=== PATIENT | female | born 1970 | race Hispanic/Latino ===

== ENCOUNTER 2019-11-20 18:45 | Emergency (ER) | payer MEDICAID, SELFPAY ==
[2019-11-20] VITALS (15 sets, daily range): BP systolic 102–163; BP diastolic 67–93; PULSE 59–78; RESP 14–99; TEMP 36.8; O2SAT 96–100
--- NOTE | 2019-11-20 18:54 | DI.RAD.S_ITS ---
PROCEDURE: XR WRIST LT MIN 3V INDICATIONS: fall with injury TECHNIQUE: 3 views of the wrist were acquired. COMPARISON: None. FINDINGS: Bones: Acute comminuted and impacted distal radial fracture is seen with fracture line extending to radiocarpal joint space and dorsally displaced fracture fragments. Slightly displaced ulnar styloid fracture is also seen. No other fracture or dislocation. No suspicious bony lesions. Scaphoid view: Scaphoid is intact. Soft tissues: No suspicious soft tissue calcifications. IMPRESSION: Acute impacted, comminuted and displaced distal radial fracture as above. Slightly displaced ulnar styloid fracture. Dictated by: Alan Yoo M.D. on 11/20/2019 at 19:56 Approved by: Alan Yoo M.D. on 11/20/2019 at 19:56
--- NOTE | 2019-11-20 18:54 | DI.RAD.S_ITS ---
PROCEDURE: XR ELBOW LT MIN 3V INDICATIONS: fall with elbow pain TECHNIQUE: 3 views of the elbow were acquired. COMPARISON: None. FINDINGS: Bones: No fractures or dislocations. No suspicious bony lesions. Soft tissues: No elbow joint effusion. No suspicious soft tissue calcifications. IMPRESSION: No acute elbow fracture or dislocation. No joint effusion. Dictated by: Alan Yoo M.D. on 11/20/2019 at 19:55 Approved by: Alan Yoo M.D. on 11/20/2019 at 19:56
--- NOTE | 2019-11-20 19:08 | ED_ITS ---
HPI - Extremity Injury (Upper) General Chief Complaint: Extremity Injury, Upper Stated Complaint: LEFT ARM INJURY Time Seen by Provider: 11/20/19 18:54 Source: patient Mode of arrival: Ambulatory Limitations: no limitations History of Present Illness HPI narrative: 49F nonsmoker without significant medical history presents with her the chief complaint of severe injury to her left wrist after a ground level fall a few hours ago. She landed on an outstretched left arm and has pain in her wrist and elbow. She denies any head, neck, or back pain. She denies numbness, weakness, or tingling. She is otherwise well and free of complaint. She was seen by her doctor on [facility] and placed in a splint and sent here for definitive care. MD complaint: injury to: left, arm, elbow and wrist Onset (ago): hour(s) Other injuries: none Handedness: right Place: home Severity: moderate Relieving factors: immobilization Exacerbating factors: movement of extremity Context: fall and direct blow Associated symptoms: denies other symptoms Related Data Allergies Allergy/AdvReac Type Severity Reaction Status Date / Time No Known Allergies Allergy Uncoded 11/20/19 18:53 Review of Systems Constitutional Constitutional: Denies chills, Denies fatigue, Denies fever(s), Denies frequent falls, Denies lethargy and Denies weakness Eyes Eyes: Denies change in vision, Denies eye discharge, Denies irritation and Denies loss of vision ENT Ears, Nose, Mouth, and Throat: Denies change in voice, Denies dizziness, Denies neck pain, Denies sore throat and Denies throat swelling Cardiovascular Cardiovascular: Denies chest pain, Denies irregular heart rhythm, Denies lightheadedness, Denies palpitations, Denies dyspnea, Denies dyspnea on exertion and Denies orthopnea Respiratory Respiratory: Denies cough, Denies dyspnea, Denies dyspnea on exertion and Denies wheezing Gastrointestinal Gastrointestinal: Denies abdominal pain, Denies change in bowel habits, Denies diarrhea, Denies nausea and Denies vomiting Musculoskeletal Musculoskeletal: Reports deformity, Reports arthralgias, Reports limited range of motion, Denies neck pain and Denies numbness Integumentary/Breasts Skin/Breast: Denies pruritus, Denies erythema, Denies rash and Denies wounds Neurologic Neurologic: Denies behavioral changes, Denies confusion, Denies dizziness, Denies frequent falls, Denies loss of vision, Denies numbness and Denies weakness Psychiatric Psychiatric: Denies anxiety, Denies behavioral changes, Denies confusion, Denies depression, Denies homicidal ideation and Denies suicidal ideation Endocrine Endocrine: Denies fatigue, Denies flushing and Denies palpitations Hematologic/Lymphatic Hematologic/Lymphatic: Denies easy bruising Allergic/Immunologic Allergic/Immunologic: Denies urticaria, Denies throat swelling and Denies wheezing Patient History Social History Smoking Status: Never smoker Smoking Status: Never smoker alcohol intake frequency: holidays/special occasions only Substance Use Type: does not use Exam Narrative Exam Narrative: GENERAL: [49] year old patient appears stated age. Well-nour ished, well-developed patient, in mild distress. GCS 15 HEAD: Atraumatic. Normocephalic. EYES: Pupils equal round and reactive. Extraocular motions intact. No scleral icterus. No injection or drainage. ENT: Nose without bleeding, purulent drainage. Throat without erythema, tonsillar hypertrophy or exudate. Airway patent. NECK: Trachea midline. Non tender CARDIOVASCULAR: Regular rate and rhythm without murmurs, gallops, or rubs. RESPIRATORY: Clear to auscultation. Breath sounds equal bilaterally. No wheezes, rales, or rhonchi. GASTROINTESTINAL: Abdomen soft, non-tender, nondistended. EXTREMITIES: Cap refill less than 2 seconds, sensation intact, patient able to wiggle her fingers though with pain. Significant pain with palpation of distal forearm. . BACK: Nontender without deformity or crepitance. No flank tenderness. NEURO: AOx3. SKIN: No rash or erythema of visible areas Initial Vital Signs Initial Vital Signs: Vital Signs Temperature 98.2 F 11/20/19 18:51 Pulse Rate 78 11/20/19 18:51 Respiratory Rate 16 11/20/19 18:51 Blood Pressure 163/93 H 11/20/19 18:51 Pulse Oximetry 96 11/20/19 18:51 Procedures Orthopedic Fracture Reduction Fracture #1: Time Out Performed: Yes Side: left Fracture Reduction Location: radius Analgesia: procedural sedation Technique: direct manipulation and traction/counter-traction Post Reduction X-rays Demonstrate: acceptable reduction Post-reduction neuro exam: intact Post-reduction vascular exam: intact Splint Applied: Yes Patient Tolerated Procedure: Well Orthopedic Splinting/Casting Injury #1: Side: left Upper Extremity Injury Location: wrist Upper Extremity Immobilizer: sling/shoulder immobilizer and sugar tong splint Post splinting neuro exam: intact Post splinting vascular exam: intact Placed by: Nursing Procedural Sedation Consent signed: Yes Time out performed: Yes Indication: fracture/dislocation reduction ASA Class: II Mallampati Airway Classification: Class II Preparation: equipment monitor phototypesetting applied, pulse oximeter, capnometry used, supplemental O2 applied, suction/airway equipment at bedside and IV secured IV Propofol dose (mg): 100 Intraservice time/total sedation time (min): 10 ED Sedation Level: Moderate (Concious) Complications: none Course Orders Ordered: ED Orders 11/20/19 18:54 XR elbow LT min 3V Stat XR wrist LT min 3V Stat 11/20/19 20:21 XR wrist LT 2V Stat Discontinued Medications Ondansetron HCl (Zofran) 4 mg IV NOW ONE Stop: 11/20/19 19:40 Last Admin: 11/20/19 20:05 Dose: 4 mg Documented by: ROBIN Propofol (Diprivan) 70 mg IV NOW ONE Stop: 11/20/19 19:40 Last Admin: 11/20/19 20:30 Dose: Not Given Documented by: ROBIN Propofol (Diprivan) 100 mg IV NOW ONE Stop: 11/20/19 20:21 Last Admin: 11/20/19 20:30 Dose: 100 mg Documented by: ROBIN Vital Signs Vital signs: Vital Signs - 8 hr 11/20/19 18:51 11/20/19 20:08 11/20/19 20:16 Temperature 98.2 F Pulse Rate 78 68 77 Respiratory Rate 16 17 99 H Blood Pressure 163/93 H 158/83 H 102/70 Pulse Oximetry 96 97 99 11/20/19 20:21 11/20/19 20:27 11/20/19 20:30 Temperature Pulse Rate 77 70 68 Respiratory Rate 36 H 18 17 Blood Pressure 123/76 134/76 Pulse Oximetry 97 98 11/20/19 20:36 11/20/19 20:42 11/20/19 20:45 Temperature Pulse Rate 61 59 L 61 Respiratory Rate 17 16 17 Blood Pressure 146/67 H 137/78 Pulse Oximetry 99 100 100 11/20/19 20:50 11/20/19 20:55 11/20/19 21:00 Temperature Pulse Rate 64 66 64 Respiratory Rate 16 16 14 Blood Pressure 137/79 Pulse Oximetry 100 99 100 11/20/19 21:05 11/20/19 21:10 11/20/19 21:15 Temperature Pulse Rate 62 65 65 Respiratory Rate 15 29 H 15 Blood Pressure 132/78 Pulse Oximetry 100 100 99 MDM - Extremity Injury (Upper) Lab Data Labs: Point of Care Testing Test Results Negative Imaging Data Extremity x-ray #1: Radiologist's Impression: [address] [address] XRay Report Signed Patient: Domo Sprague#: [id number] : 1970Acct:[id number] Age/Sex: 49 / FDate of Service: 11/20/19 Loc: ED Accession Number: [id number] Procedure: XR wrist LT min 3V Ordering Provider: Mathew De La Rosa D.O. PROCEDURE: XR WRIST LT MIN 3V INDICATIONS: fall with injury TECHNIQUE: 3 views of the wrist were acquired. COMPARISON: None. FINDINGS: Bones: Acute comminuted and impacted distal radial fracture is seen with fracture line extending to radiocarpal joint space and dorsally displaced fracture fragments. Slightly displaced ulnar styloid fracture is also seen. No other fracture or dislocation. No suspicious bony lesions. Scaphoid view: Scaphoid is intact. Soft tissues: No suspicious soft tissue calcifications. IMPRESSION: Acute impacted, comminuted and displaced distal radial fracture as above. Slightly displaced ulnar styloid fracture. Dictated by: Alan Yoo M.D. on 11/20/2019 at 19:56 Approved by: Alan Yoo M.D. on 11/20/2019 at 19:56 Extremity x-ray #2: Attestation: I personally reviewed and interpreted this imaging study as follows: My Impression: no change Radiologist's Impression: [address] [address] XRay Report Signed Patient: Domo Sprague#: [id number] : 1970Acct:[id number] Age/Sex: 49 / FDate of Service: 11/20/19 Loc: ED Accession Number: [id number] Procedure: XR wrist LT 2V Ordering Provider: Mathew De La Rosa D.O. PROCEDURE: XR WRIST LT 2V INDICATIONS: post reduction TECHNIQUE: 2 views of the wrist were acquired. COMPARISON: [facility], CR, XR WRIST LT MIN 3V, 11/20/2019, 19:05. FINDINGS: Bones: There is interval reduction of earlier noted comminuted and impacted distal radial fracture with slight improvement of left wrist alignment. Ulnar styloid fracture is again seen. Scaphoid view: Scaphoid is grossly intact. Discharge Plan Departure Patient Disposition: Home Clinical Impression: Fracture of wrist Qualifiers: Encounter type: initial encounter Fracture type: closed Laterality: left Qualified Code(s): S62.102A - Fracture of unspecified carpal bone, left wrist, initial encounter for closed fracture Discharge Date/Time: 11/20/19 21:25 Instructions: DI for Distal Radius Fracture Activity Restrictions/Additional Instructions: *You have been diagnosed with [left distal radius fracture] *What to do: *Take medications as directed *Follow up with [facility], call tomorrow for an appointment for follow up, as you will almost certainly need surgical revision *Return to ER if you should have any new, worsening or concerning symptoms, such as [increasing pain, numbness, tingling] Referrals: Alex Waller MD [Physician] -
--- NOTE | 2019-11-20 19:10 | PC.NURSE ---
splint in place from clinic, CMS intact
[2019-11-20] MEDS: ONDANSETRON 4 MG/2 ML INJ IV (20:05)
--- NOTE | 2019-11-20 20:21 | DI.RAD.S_ITS ---
PROCEDURE: XR WRIST LT 2V INDICATIONS: post reduction TECHNIQUE: 2 views of the wrist were acquired. COMPARISON: [facility], CR, XR WRIST LT MIN 3V, 11/20/2019, 19:05. FINDINGS: Bones: There is interval reduction of earlier noted comminuted and impacted distal radial fracture with slight improvement of left wrist alignment. Ulnar styloid fracture is again seen. Scaphoid view: Scaphoid is grossly intact. Soft tissues: No suspicious soft tissue calcifications. IMPRESSION: Interval reduction of earlier noted comminuted distal radial fracture with slightly improved left wrist alignment. Dictated by: Alan oYo M.D. on 11/20/2019 at 20:51 Approved by: Alan Yoo M.D. on 11/20/2019 at 20:55
[2019-11-20] MEDS: propofoL 200 MG/20 ML VIAL 100 MG IV (20:30)
== END 2019-11-20 21:25 | disposition home or self-care (01) ==
PROVIDERS: Emergency Provider Emergency Medicine
DX: S62.102A Fracture of unspecified carpal bone, left wrist, initial encounter for closed fracture (principal); W19.XXXA Unspecified fall, initial encounter
CPT/HCPCS: 25605; 29105; 29125; 73080; 73100; 73110; 94770; 96374; 99152; 99284; 99285; J2405; J2704

== ENCOUNTER → 2020-10-04 09:34 | Outpatient (CLI) | payer OTHER, MEDICAID, SELFPAY ==
--- NOTE | 2020-10-04 09:35 | DI.US.S_ITS ---
PROCEDURE: US PELVIC COMPLETE INDICATIONS: ABNORMAL BLEEDING TECHNIQUE: Real-time scanning was performed of the pelvic organs, with image documentation. Additional endovaginal scanning was necessary due to incomplete visualization of the adnexal and endometrial structures by transabdominal scanning. COMPARISON: None. FINDINGS: Uterus: Uterus is normal in size at 9.4 x 3.7 x 5.7 cm. The endometrium measures 11 mm in combined thickness, although it is not well seen. Ovaries: The right ovary measures 1.5 x 1.1 x 1.3 cm. There is a right adnexal cystic structure seen separate from the ovary that measures up to 1.5 cm. Within the left adnexal region, there is a 2.9 cm adnexal cyst seen. The left ovary itself is not seen. Other: No pathologic free abdominal or pelvic fluid. IMPRESSION: The endometrial stripe is thickened in this patient with a given history of postmenopausal bleeding. Differential diagnosis includes endometrial neoplasm and endometrial hyperplasia. Recommend correlation with endometrial histology, if clinically appropriate. Bilateral adnexal cysts are seen, which measure up to 2.9 cm on the left. Dictated by: Shahid Ratliff M.D. on 10/04/2020 at 10:01 Approved by: Shahid Ratliff M.D. on 10/04/2020 at 10:03
== END ==
PROVIDERS: PCP Physician Assistant; Referring Provider Physician Assistant; Visit Provider Physician Assistant
DX: N93.9 Abnormal uterine and vaginal bleeding, unspecified (principal); R93.89 Abnormal findings on diagnostic imaging of other specified body structures; N94.89 Other specified conditions associated with female genital organs and menstrual cycle
CPT/HCPCS: 76830; 76856

== ENCOUNTER 2021-03-08 17:59 | Emergency (ER) | payer OTHER, MEDICAID, SELFPAY ==
[2021-03-08 18:18] VITALS: BP 133/72; PULSE 79; RESP 17; TEMP 36.8; O2SAT 99; BMI 31.2
--- NOTE | 2021-03-08 18:24 | PC.NURSE ---
Patient here with neighbor who has agreed to be an business planning analyst for the patient. Denies need for business planning analyst services. patient reports body aches, including pain in low back, scratchy throat, and fatigue since yesterday. No known covid exposure. She denies any urinary symptoms.
[2021-03-08 18:51] LABS: COVID19 -Nasal RAPID POSITIVE (Negative)
[2021-03-08 19:11] LABS: Bacteria Urine Occasional (0-1); Culture Indicated Urine Cult Not Indicated; Mucus Urine 2+ (Negative); RBC Urine 1-5/HPF (0-5/HPF); Squamous Epithelial Cell Urine 5-10 /HPF (0-5/HPF); Transitional Epi Cells Urine 1-5/HPF (0-5/HPF); WBC Urine 1-5/HPF (0-5/HPF)
--- NOTE | 2021-03-08 19:22 | ED.GENADULT ---
HPI - General Adult General Chief complaint: Upper Respiratory Symptoms Stated complaint: Chills/headaches/muscle pain/low back pain x2days Time Seen by Provider: 03/08/21 18:16 Source: patient and cessation systems outreach specialist Mode of arrival: Ambulatory History of Present Illness HPI narrative: Patient is a 50-year-old female. Is predominantly Pashto speaking. Family is in the room. They are providing translation. Offer the translation line but they declined. Patient has had chills and headaches and muscle pain and back discomfort for the past couple days. She has been vaccinated against COVID. Was a Joseph and Joseph vaccine it was several months ago that she received hip. Patient denies any other underlying lung issues. Related Data Allergies Allergy/AdvReac Type Severity Reaction Status Date / Time No Known Allergies Allergy Uncoded 03/08/21 18:21 Review of Systems Constitutional Constitutional: Reports body ache(s), Reports chills, Reports fatigue, Reports fever(s) and Reports headache(s) ENT Ears, Nose, Mouth, and Throat: Reports headache(s) Cardiovascular Cardiovascular: Reports system reviewed and no additional complaints, except as documented Respiratory Respiratory: Reports as per HPI and Reports system reviewed and no additional complaints, except as documented Gastrointestinal Gastrointestinal: Reports system reviewed and no additional complaints, except as documented Genitourinary Genitourinary: Reports system reviewed and no additional complaints, except as documented Musculoskeletal Musculoskeletal: Reports back pain Integumentary/Breasts Skin/Breast: Reports system reviewed and no additional complaints, except as documented Neurologic Neurologic: Reports headache(s) Endocrine Endocrine: Reports fatigue Hematologic/Lymphatic On Anticoagulants: No Patient History Medical History Abnormal uterine and vaginal bleeding, unspecified Menopausal and female climacteric states Other specified disorders of veins Otitis media Pap smear of cervix shows high risk HPV present Postmenopausal bleeding Varicose veins of bilateral lower extremities with other complications Surgical History (Updated 10/24/20 @ 21:42 by Nataliia Jones) Anesthesia History of hand surgery (~11/29/19) Family History (Updated 10/24/20 @ 21:43 by Nataliia Jones) Father Hyperlipidemia Mother Diabetes mellitus Social History Smoking Status: Never smoker Smoking Status: Never smoker alcohol intake frequency: holidays/special occasions only Substance Use Type: does not use Exam Initial Vital Signs Initial Vital Signs: Vital Signs Temperature 98.2 F 03/08/21 18:18 Pulse Rate 79 03/08/21 18:18 Respiratory Rate 17 03/08/21 18:18 Blood Pressure 133/72 03/08/21 18:18 Pulse Oximetry 99 03/08/21 18:18 Const General: cooperative, healthy appearing and comfortable HENMT Head: normal to inspection and normocephalic Chest Chest: normal inspection of the chest Resp Effort & Inspection: normal respiratory effort Auscultation: clear to auscultation bilaterally Cardio Rate: regular rate Rhythm: regular rhythm Back/Spine/Pelvis Thoracic/Lumbar Spine: thoracic and lumbar spine normal to inspection, No paraspinal tenderness, No thoracic spinal tenderness and No lumbar spinal tenderness Skin General: no rashes or lesions noted Extrem General: normal to inspection and capillary refill normal Psych Appearance: grossly normal and well kempt Course Orders Ordered: ED Orders 03/08/21 18:13 COVID19 -Nasal swab/Pre-Proc Stat Urine Culture Stat Urine Microscopic Stat Vital Signs Vital signs: Vital Signs - 8 hr 03/08/21 18:18 Temperature 98.2 F Pulse Rate 79 Respiratory Rate 17 Blood Pressure 133/72 Pulse Oximetry 99 Medical Decision Making Lab Data Labs: Lab Results 03/08/21 03/08/21 Range/Units 18:13 18:13 Urine RBC 1-5/hpf (0-5/HPF) Urine WBC 1-5/hpf (0-5/HPF) Ur Squamous Epith Cells 5-10 /hpf H (0-5/HPF) Ur Transition Epith Cell 1-5/hpf (0-5/HPF) Urine Bacteria Occasional (0-1) (None) Urine Mucus 2+ H (Negative) Ur Culture Indicated? Cult not indicated SARS-CoV-2 (PCR) Positive H (Negative) Point of Care Testing Test Results Negative Urine Dip Bedside Urine Glucose Negative Bedside Urine Bilirubin - Negative Bedside Urine Ketone + 15 Urine Specific Carlton 1.030 Bedside Urine Occult Blood - Negative Bedside Urine pH 6 Bedside Urine Protein + 30 Bedside Urine Urobilinogen - Negative Bedside Urine Leukocytes - Negative Esterase Point of care testing: Point of Care Testing Test Results Negative Urine Dip Bedside Urine Glucose Negative Bedside Urine Bilirubin - Negative Bedside Urine Ketone + 15 Urine Specific Carlton 1.030 Bedside Urine Occult Blood - Negative Bedside Urine pH 6 Bedside Urine Protein + 30 Bedside Urine Urobilinogen - Negative Bedside Urine Leukocytes - Negative Esterase MDM Narrative Medical decision making narrative: Patient is COVID positive. No respiratory distress. Lungs are clear. Presenting symptoms all explained by COVID. Back discomfort is actually body aches. We did discuss the use of Tylenol. Discussed return precautions. He expressed understanding and agreement. Discharge Plan Departure Patient Disposition: Home Clinical Impression: COVID-19 Instructions: DI for COVID-19 (Suspected or Confirmed ) Activity Restrictions/Additional Instructions: You can take Tylenol/acetaminophen every 4-6 hours as needed for fevers or body aches. Be sure to increase your fluid intake. Contact your primary doctor for a follow-up. Return to the emergency department for any new or worsening symptoms. Referrals: Meg Phillips PA-C [Primary Care Provider] -
== END 2021-03-08 19:26 | disposition home or self-care (01) ==
PROVIDERS: Emergency Provider Emergency Medicine; PCP Physician Assistant
DX: U07.1 COVID-19 (principal)
CPT/HCPCS: 81003; 81015; 81025; 87086; 87635; 99282; C9803

== ENCOUNTER → 2022-07-02 17:15 | Outpatient (CLI) | payer OTHER, MEDICAID, SELFPAY ==
[2022-07-06 10:14] LABS: Candida species Negative (Negative); Gardnerella vaginalis Positive (Negative); Trichomoas vaginalis Negative (Negative)
== END ==
PROVIDERS: PCP Physician Assistant; Visit Provider Physician Assistant
DX: N89.8 Other specified noninflammatory disorders of vagina (principal); Z01.419 Encounter for gynecological examination (general) (routine) without abnormal findings
CPT/HCPCS: 87480; 87510; 87660

== ENCOUNTER → 2022-07-30 11:47 | Outpatient (CLI) | payer OTHER, MEDICAID, SELFPAY ==
--- NOTE | 2022-07-30 | DI.MG.S_ITS ---
BILATERAL DIGITAL SCREENING MAMMOGRAM 3D/2D WITH CAD: 07/30/2022 CLINICAL: Baseline by default. No prior exams were available for comparison. There are scattered areas of fibroglandular density in both breasts (category b / 25%-50% glandular tissue). Current study was also evaluated with a Computer Aided Detection (CAD) system. There is a possible asymmetry in the left breast middle depth lateral region seen on the craniocaudal view only. No other significant masses, calcifications, or other findings are seen in either breast. IMPRESSION: INCOMPLETE: NEEDS ADDITIONAL IMAGING EVALUATION The possible asymmetry in the left breast is indeterminate. Additional views with possible ultrasound are recommended. Based on the Tyrer Cuzick model (a risk assessment model) the patient's lifetime risk is 9.5% and her 10 year risk is 2.2%. According to the ACR, ACS, and NCCN guidelines, an annual breast MRI exam along with mammogram is recommended if the patient's lifetime risk is 20% or greater. This exam was interpreted at Station ID: [id number]. NOTE: For mammograms, a report in lay terms will be sent to the patient. Approximately 15% of breast malignancies will not be visualized mammographically. In the management of a palpable breast mass, a negative mammogram must not discourage biopsy of a clinically suspicious lesion. Electronically Signed By: Torey Haney M.D. [facility] [place]/:07/30/2022 15:28:52 letter sent: Additional Imaging Needed ACR BI-RADS Category 0: Incomplete [id number]
--- NOTE | 2022-07-30 11:48 | DI.US.S_ITS ---
PROCEDURE: US PELVIC COMPLETE INDICATIONS: CHRONIC PELVIC PAIN TECHNIQUE: Real-time scanning was performed of the pelvic organs, with image documentation. Additional endovaginal scanning was necessary due to incomplete visualization of the adnexal and endometrial structures by transabdominal scanning. COMPARISON: Merged With [facility], US, US PELVIC COMPLETE, 10/04/2020, 9:14. FINDINGS: Uterus: Uterus is anteverted and normal in size at 9.3 x 3.5 x 2.7 cm. The myometrium is homogeneous. The endometrium measures 2.2 mm combined thickness. Endometrium and in junctional zone somewhat heterogenous Ovaries: The right ovary measures 1.1 x 1.5 x 1.3 cm, with a calculated ovarian volume of 1.1 cc. The left ovary measures 1.5 x 0.9 by 2.1 cm, with a calculated ovarian volume of 2.0 cc. The ovaries have a normal sonographic appearance. Less than 12 follicles can be seen in each ovary. No adnexal masses are seen. Other: No pathologic free abdominal or pelvic fluid. IMPRESSION: Nonspecific heterogenous endometrium without thickening. Approved by: Harman Boyer M.D. on 07/30/2022 at 20:27
== END ==
PROVIDERS: PCP Physician Assistant; Referring Provider Physician Assistant; Visit Provider Physician Assistant
DX: Z12.31 Encounter for screening mammogram for malignant neoplasm of breast (principal); R10.2 Pelvic and perineal pain; N64.89 Other specified disorders of breast
CPT/HCPCS: 76830; 76856; 77063; 77067

== ENCOUNTER → 2022-08-25 12:30 | Outpatient (CLI) | payer OTHER, MEDICAID, SELFPAY ==
[2022-08-27 07:32] LABS: Interpretation Positive (Negative)
== END ==
PROVIDERS: PCP Physician Assistant; Visit Provider Physician Assistant
DX: K21.9 Gastro-esophageal reflux disease without esophagitis (principal)
CPT/HCPCS: 83013

== ENCOUNTER → 2022-08-31 10:40 | Outpatient (CLI) | payer OTHER, MEDICAID, SELFPAY ==
--- NOTE | 2022-08-31 | DI.MG.S_ITS ---
UNILATERAL LEFT DIGITAL DIAGNOSTIC MAMMOGRAM 3D/2D WITH ADDITIONAL VIEWS: 08/31/2022 CLINICAL: Additional evaluation requested from prior study. Comparison is made to exam dated: 07/30/2022 mammogram - [facility]. There are scattered areas of fibroglandular density in the left breast (category b / 25%-50% glandular tissue). There is a possible asymmetry in the left breast middle depth lateral region seen on the craniocaudal view only. This is less prominent, likely representing summation artifaction on screening mammogram. No other significant masses or calcifications are seen in the breast. IMPRESSION: BENIGN There is no mammographic evidence of malignancy. Return to annual mammogram screening schedule is recommended. Based on the Tyrer Cuzick model (a risk assessment model) the patient's lifetime risk is 7.1% and her 10 year risk is 1.6%. According to the ACR, ACS, and NCCN guidelines, an annual breast MRI exam along with mammogram is recommended if the patient's lifetime risk is 20% or greater. This exam was interpreted at Station ID: [id number]. NOTE: For mammograms, a report in lay terms will be sent to the patient. Approximately 15% of breast malignancies will not be visualized mammographically. In the management of a palpable breast mass, a negative mammogram must not discourage biopsy of a clinically suspicious lesion. Electronically Signed By: Arron Yañez M.D. lc/:08/31/2022 12:31:20 letter sent: Normal Exam ACR BI-RADS Category 2: Benign Finding(s) 3342F
== END ==
PROVIDERS: PCP Physician Assistant; Referring Provider Physician Assistant; Visit Provider Physician Assistant
DX: R92.8 Other abnormal and inconclusive findings on diagnostic imaging of breast (principal)
CPT/HCPCS: 77065; G0279

== ENCOUNTER → 2022-09-03 11:14 | Outpatient (CLI) | payer OTHER, MEDICAID, SELFPAY ==
[2022-09-03 20:17] LABS: Add Manual Diff / Slide Review NO; Alanine Aminotransferase 46 IU/L (<35); Albumin 3.6 g/dL (3.5-5.0); Albumin Globulin Ratio 1.2 (1.0-2.8); Alkaline Phosphatase 116 U/L (38-126); Aspartate Aminotransferase 33 IU/L (14-36); BUN Creatinine Ratio 31.4 (6-22); Basophils Absolute Auto 0 /uL (0-100); Basophils Percent Auto 0.4 % (0-2); Bilirubin Total 0.4 mg/dL (0.2-1.3); Blood Urea Nitrogen 16 mg/dL (7-17); Calcium 8.2 mg/dL (8.4-10.2); Carbon Dioxide 27 mmol/L (22-32); Chloride 107 mmol/L (98-107); Cholesterol 167 mg/dL (140-199); Eosinophils Absolute Auto 0 /uL (0-450); Eosinophils Percent Auto 0.8 % (2-4); Estimated Glomerular Filt Rate > 60 mL/min (>60); Glucose 102 mg/dL (70-100); HDL Cholesterol 37 mg/dL (40-60); HEMOLYSIS < 15 (0-50); Hematocrit 34.9 % (36-46); Hemoglobin 11.9 g/dL (12.0-16.0); LDL Cholesterol Calculated 100 mg/dL (<100); Lymphocytes Absolute Auto 1000 /uL (1100-4500); Lymphocytes Percent Auto 36.9 % (25-40); Mean Corpuscular Hemoglobin 34.9 PG (26-34); Mean Corpuscular Volume 102.6 fL (80-100); Monocytes Absolute Auto 300 /uL (0-900); Monocytes Percent Auto 10.3 % (3-14); Neutrophils Absolute Auto 1400 /uL (1500-7000); Neutrophils Percent Auto 51.6 % (50-75); Platelet Count 94 X10^3/uL (150-400); Potassium 3.9 mmol/L (3.4-5.1); Red Cell Distribution Width 14.1 % (11.6-14.8); Sodium 138 mmol/L (137-145); Total Protein 6.6 g/dL (6.3-8.2); Triglycerides 152 mg/dL (35-150); White Blood Cell Count 2.7 X10^3/uL (4.5-11.0)
[2022-09-05 01:37] LABS: x Labcorp Estim. Avg Glu (eAG) 131 mg/dL (.); x Labcorp Hemoglobin A1c 6.2 % (4.8-5.6)
== END ==
PROVIDERS: PCP Physician Assistant; Visit Provider Physician Assistant
DX: K21.9 Gastro-esophageal reflux disease without esophagitis (principal); Z13.1 Encounter for screening for diabetes mellitus; Z13.220 Encounter for screening for lipoid disorders; Z11.59 Encounter for screening for other viral diseases
CPT/HCPCS: 80053; 80061; 83036; 85025; 87522

== ENCOUNTER → 2022-09-29 13:43 | Oncology outpatient (ONC) | payer OTHER, MEDICAID, SELFPAY ==
--- NOTE | 2022-09-29 14:59 | ONC.SCHED ---
Pt was running late for her gr[place] due to [place], she was notified of the current transition/changes in the clinic and would like to tranfer care to [place] with Dr. Moreno.
--- NOTE | 2022-09-29 15:23 | ONC.SCHED ---
Called pt back and let her know she would need to contact her pcpc to send referral to [facility]. Pt is aware and will call pcp.
== END ==
LOC: ONC 13:43
PROVIDERS: PCP Physician Assistant; Referring Provider Physician Assistant; Visit Provider Internal Medicine Hematology & Oncology
DX: R77.1 Abnormality of globulin; Z53.20 Procedure and treatment not carried out because of patient's decision for unspecified reasons

== ENCOUNTER → 2022-10-13 14:51 | Outpatient (CLI) | payer OTHER, MEDICAID, SELFPAY ==
[2022-10-15 14:09] LABS: Fecal Immunochemical Test Negative (Negative)
== END ==
PROVIDERS: PCP Physician Assistant; Visit Provider Physician Assistant
DX: A04.8 Other specified bacterial intestinal infections (principal); D61.818 Other pancytopenia; K21.9 Gastro-esophageal reflux disease without esophagitis
CPT/HCPCS: 82274

== ENCOUNTER → 2022-10-16 09:09 | Outpatient (CLI) | payer OTHER, MEDICAID, SELFPAY ==
[2022-10-16 10:02] LABS: Add Manual Diff / Slide Review NO; Basophils Absolute Auto 0 /uL (0-100); Basophils Percent Auto 0.1 % (0-2); Eosinophils Absolute Auto 0 /uL (0-450); Eosinophils Percent Auto 0.8 % (2-4); Hematocrit 35.5 % (36-46); Hemoglobin 12.1 g/dL (12.0-16.0); Lymphocytes Absolute Auto 1000 /uL (1100-4500); Lymphocytes Percent Auto 39.6 % (25-40); Mean Corpuscular Volume 102.8 fL (80-100); Monocytes Absolute Auto 300 /uL (0-900); Monocytes Percent Auto 10.4 % (3-14); Neutrophils Absolute Auto 1200 /uL (1500-7000); Neutrophils Percent Auto 49.1 % (50-75); Platelet Count 97 X10^3/uL (150-400); Red Blood Cell Count 3.45 X10^6/uL (4.0-5.2); Red Cell Distribution Width 14.1 % (11.6-14.8); White Blood Cell Count 2.5 X10^3/uL (4.5-11.0)
[2022-10-16 10:32] LABS: Alanine Aminotransferase 64 IU/L (<35); Albumin 3.8 g/dL (3.5-5.0); Albumin Globulin Ratio 1.3 (1.0-2.8); Alkaline Phosphatase 127 U/L (38-126); Aspartate Aminotransferase 45 IU/L (14-36); BUN Creatinine Ratio 34.6 (6-22); Bilirubin Total 0.5 mg/dL (0.2-1.3); Blood Urea Nitrogen 18 mg/dL (7-17); Calcium 8.5 mg/dL (8.4-10.2); Carbon Dioxide 26 mmol/L (22-32); Chloride 107 mmol/L (98-107); Estimated Glomerular Filt Rate > 60 mL/min (>60); Glucose 101 mg/dL (70-100); HEMOLYSIS < 15 (0-50); Potassium 3.8 mmol/L (3.4-5.1); Sodium 140 mmol/L (137-145); Total Protein 6.8 g/dL (6.3-8.2)
[2022-10-16 10:41] LABS: Vitamin D 25 Hydroxy (D3) 20.7 ng/mL (30.0-100.0)
[2022-10-16 10:54] LABS: TSH w/ Reflex to FT4 0.87 uIU/mL (0.47-4.68)
[2022-10-16 11:13] LABS: HIV 1 & 2 Ab/Ag 4th Gen Combo NEGATIVE (NEGATIVE); Hep C Virus Ab w/Reflex Quant NEGATIVE s/c (NEGATIVE)
[2022-10-16 11:29] LABS: Folate 13.9 ng/mL (2.76-20.0)
[2022-10-17 05:53] LABS: Hepatitis B Core AB w/Reflex Negative (Negative)
[2022-10-17 07:24] LABS: Hepatitis B Surf Ab Qualitativ Non Reactive (.)
[2022-10-19 17:08] LABS: Interpretation Negative (Negative)
== END ==
PROVIDERS: PCP Physician Assistant; Referring Provider Physician Assistant; Visit Provider Physician Assistant
DX: A04.8 Other specified bacterial intestinal infections (principal); D61.818 Other pancytopenia; K21.9 Gastro-esophageal reflux disease without esophagitis
CPT/HCPCS: 36415; 80053; 82306; 82746; 83013; 84443; 85025; 86704; 86706; 86803; 87389

== ENCOUNTER 2023-08-31 10:50 | Emergency (ER) | payer OTHER, MEDICAID, SELFPAY ==
[2023-08-31 10:59] VITALS: BP 138/81; PULSE 88; RESP 18; TEMP 36.6; O2SAT 98; BMI 31.4
--- NOTE | 2023-08-31 11:23 | ED.EXTPRO ---
HPI - Extremity Problem <Viv Meier PA-C - Last Filed: 08/31/23 21:27> General Chief complaint: Extremity Problem,Nontraumatic Stated complaint: infection on lt foot Time Seen by Provider: 08/31/23 11:19 Source: patient Mode of arrival: Wheelchair History of Present Illness HPI Narrative: This is a 53-year-old woman with history of pancytopenia, GERD, tinea corporis, and per patient chronic venous stasis changes of the lower extremities as well as chronic eczematous type rash on her left lower leg who presents after being seen at [facility] yesterday and prescribed Augmentin with concern for an area of erythema on her left ankle that has spread outside of the lines drawn yesterday in clinic despite 2 doses of oral antibiotics so far. Patient was advised to come to the emergency department if he antibiotics were not making the area of redness go down. Patient states that on Wednesday she started having redness and swelling tenderness and pain in her left ankle with skin changes that looked different than her normal skin color in that area. She states it has also been painful to walk and she has had pain in her calf. She has never had something like this before. She denies fevers and chills but states she has been feeling fatigued. She denies any other complaints or concerns Related Data Home Medications Medication Instructions Recorded Confirmed acetaminophen 500 mg tablet 500 mg PO Q6H PRN 08/30/23 09/07/23 Previous Rx's Medication Instructions Recorded omeprazole 20 mg capsule,delayed 20 mg PO DAILY #30 caps 08/25/22 release omeprazole 40 mg capsule,delayed 40 mg PO BID #28 caps 08/27/22 release cholecalciferol (vitamin D3) 1,250 1,250 mcg PO QMONTH #12 caps 10/27/22 mcg (50,000 unit) capsule albuterol sulfate 90 mcg/actuation 2 puff inhalation Q6H PRN 04/01/23 aerosol inhaler shortness of breath or wheezing #8.5 grams benzonatate 100 mg capsule 100 mg PO BID-TID PRN cough #20 04/01/23 caps fluticasone propionate 50 1 spray intranasal BID #16 grams 04/01/23 mcg/actuation nasal spray,suspension (Flonase Allergy Relief) amoxicillin 875 mg-potassium 1 tab PO BID infection #20 tabs 08/30/23 clavulanate 125 mg tablet ondansetron HCl 4 mg tablet 4 mg PO TID PRN nausea and 08/30/23 vomiting #14 tabs fluconazole 150 mg tablet 150 mg PO ONCE #1 tab 09/07/23 furosemide 20 mg tablet 20 mg PO QAM for swelling in leg 09/07/23 #30 tabs triamcinolone acetonide 0.1 % 1 applic topical DAILY for itchy 09/07/23 topical cream skin on legs #60 grams Allergies Allergy/AdvReac Type Severity Reaction Status Date / Time No Known Drug Allergies Allergy Verified 09/07/23 12:02 Review of Systems <Viv Meier PA-C - Last Filed: 08/31/23 21:27> Review of Systems Narrative: See HPI Patient History <Viv Meier PA-C - Last Filed: 08/31/23 21:27> Medical History H. pylori infection Screening cholesterol level Diabetes mellitus screening Abnormal mammogram Well woman exam Atopic dermatitis Viral URI with cough Cytology examination positive for high risk human papillomavirus (HPV) Otitis media Breast cancer screening Varicose veins of bilateral lower extremities with other complications Other specified disorders of veins Postmenopausal bleeding Menopausal and female climacteric states Pap smear of cervix shows high risk HPV present Abnormal uterine and vaginal bleeding, unspecified Surgical History Anesthesia History of hand surgery (~11/29/19) Family History Father Hyperlipidemia Mother Diabetes mellitus Social History Smoking Status: Never smoker Smoking Status: Never smoker alcohol intake frequency: holidays/special occasions only Substance Use Type: does not use Exam <Viv Meier PA-C - Last Filed: 08/31/23 21:27> Narrative Exam Narrative: GENERAL: [53] year old patient appears stated age. Well-developed patient, in mild distress. HEAD: Atraumatic. Normocephalic. EYES: Pupils equal round and reactive. Extraocular motions intact. No scleral icterus. No injection or drainage. ENT: Nose without bleeding, purulent drainage. Airway patent. NECK: Trachea midline. CARDIOVASCULAR: Regular rate and rhythm without murmurs, gallops, or rubs. RESPIRATORY: Clear to auscultation. Breath sounds equal bilaterally. No wheezes, rales, or rhonchi. GASTROINTESTINAL: Abdomen soft, non-tender, nondistended. EXTREMITIES: Affected left lower extremity has strong dorsalis pedis and posterior tibialis pulses. Cap refill is less than 2 seconds. There is a demarcated area with a skin pen on the patient's eisenberg with an approximately 15 cm in height area of significant erythema with reddish and purplish discoloration the area is extremely hot to the touch and swollen there are some areas of induration/firmness. No blistering. This erythema is circumferential around her inferior calf. She also has tenderness midline of the posterior calf and of the popliteal fossa. The erythema extends proximally 2 cm up and beyond the area drawn with a skin pen yesterday by her PCP. No other edema or joint tenderness. BACK: Nontender without deformity or crepitance. No flank tenderness. NEURO: AOx3. SKIN: No rash or erythema of visible areas Initial Vital Signs Initial Vital Signs: Vital Signs Temperature 97.9 F 08/31/23 10:59 Pulse Rate 88 08/31/23 10:59 Respiratory Rate 18 08/31/23 10:59 Blood Pressure 138/81 08/31/23 10:59 Pulse Oximetry 98 08/31/23 10:59 Oxygen Delivery Method Room Air 08/31/23 10:59 <Renuka Sanford MD - Last Filed: 09/13/23 21:36> Initial Vital Signs Initial Vital Signs: Vital Signs Temperature 97.9 F 08/31/23 10:59 Pulse Rate 88 08/31/23 10:59 Respiratory Rate 18 08/31/23 10:59 Blood Pressure 138/81 08/31/23 10:59 Pulse Oximetry 98 08/31/23 10:59 Oxygen Delivery Method Room Air 08/31/23 10:59 Course <Viv Meier PA-C - Last Filed: 08/31/23 21:27> Course Course Narrative: Spoke with hospital pharmacist Brigitte about this patient. One possibility is that she has not been on the Augmentin long enough and that is why we have seen a worsening/no improvement of the area of erythema for her, it is also possible that there may be staph involvement in which case she recommends either IV doxy or IV vancomycin dose. Given the patient is not septic appearing and I anticipate discharge she states it is reasonable to consider ceftriaxone IV plus doxy or vanco IV with plan for outpatient continuation of Augmentin and adding doxy to this to restart tomorrow morning after these IV medications. 100 mg of IV doxycycline as well as 2 g of Rocephin are ordered. 1410 Orders Ordered: Discontinued Medications Fentanyl (Fentanyl 100 Mcg/2 Ml Inj) 50 mcg IV NOW ONE Stop: 08/31/23 13:06 Last Admin: 08/31/23 13:24 Dose: 50 mcg Documented By: JEANNE Doxycycline Hyclate 100 mg/ (Sodium Chloride) 100 mls @ 100 mls/hr IV NOW ONE Stop: 08/31/23 14:12 Last Infusion: 08/31/23 15:59 Dose: Infused Documented By: Admin: 08/31/23 14:57 Dose: 100 mls/hr Documented By: YUDI Ceftriaxone Sodium 2,000 mg/ (Sodium Chloride) 100 mls @ 200 mls/hr IV NOW ONE Stop: 08/31/23 14:12 Last Infusion: 08/31/23 16:45 Dose: Infused Documented By: Admin: 08/31/23 16:13 Dose: 200 mls/hr Documented By: JOSIAH Ondansetron HCl (Ondansetron 4 Mg/2 Ml Inj) 4 mg IV NOW ONE Stop: 08/31/23 13:02 Last Admin: 08/31/23 13:24 Dose: 4 mg Documented By: JEANNE Vital Signs Vital signs: Vital Signs - 8 hr 08/31/23 13:47 08/31/23 14:30 08/31/23 15:30 Temperature Pulse Rate 74 75 79 Respiratory Rate 16 16 17 Blood Pressure 115/74 Pulse Oximetry 97 98 97 Oxygen Delivery Method Nasal Cannula Room Air Room Air Oxygen Flow Rate 2 08/31/23 17:27 Temperature 98.6 F Pulse Rate 76 Respiratory Rate 16 Blood Pressure 111/67 Pulse Oximetry 97 Oxygen Delivery Method Room Air Oxygen Flow Rate <Renuka Sanford MD - Last Filed: 09/13/23 21:36> Orders Ordered: Discontinued Medications Fentanyl (Fentanyl 100 Mcg/2 Ml Inj) 50 mcg IV NOW ONE Stop: 08/31/23 13:06 Last Admin: 08/31/23 13:24 Dose: 50 mcg Documented By: JEANNE Doxycycline Hyclate 100 mg/ (Sodium Chloride) 100 mls @ 100 mls/hr IV NOW ONE Stop: 08/31/23 14:12 Last Infusion: 08/31/23 15:59 Dose: Infused Documented By: Admin: 08/31/23 14:57 Dose: 100 mls/hr Documented By: YUDI Ceftriaxone Sodium 2,000 mg/ (Sodium Chloride) 100 mls @ 200 mls/hr IV NOW ONE Stop: 08/31/23 14:12 Last Infusion: 08/31/23 16:45 Dose: Infused Documented By: Admin: 08/31/23 16:13 Dose: 200 mls/hr Documented By: JOSIAH Ondansetron HCl (Ondansetron 4 Mg/2 Ml Inj) 4 mg IV NOW ONE Stop: 08/31/23 13:02 Last Admin: 08/31/23 13:24 Dose: 4 mg Documented By: JEANNE Vital Signs Vital signs: Vital Signs - 8 hr 08/31/23 13:47 08/31/23 14:30 08/31/23 15:30 Temperature Pulse Rate 74 75 79 Respiratory Rate 16 16 17 Blood Pressure 115/74 Pulse Oximetry 97 98 97 Oxygen Delivery Method Nasal Cannula Room Air Room Air Oxygen Flow Rate 2 08/31/23 17:27 Temperature 98.6 F Pulse Rate 76 Respiratory Rate 16 Blood Pressure 111/67 Pulse Oximetry 97 Oxygen Delivery Method Room Air Oxygen Flow Rate MDM - Extremity (Nontraumatic) <Viv Meier PA-C - Last Filed: 08/31/23 21:27> Differential Diagnosis Differential diagnosis: Likely cellulitis and deep vein thrombosis of lower extremity Medical Records Attestation: I reviewed the patient's medical records. Lab Data Attestation: I reviewed the patient's lab results. 08/31/23 12:15 08/31/23 12:15 Labs: Lab Results 08/31/23 Range/Units 12:15 WBC 5.5 (4.5-11.0) X10^3/uL RBC 3.74 L (4.0-5.2) X10^6/uL Hgb 13.1 (12.0-16.0) g/dL Hct 38.7 (36-46) % MCV 103.5 H (80-100) fL MCH 35.2 H (26-34) PG MCHC 34.0 (30-36) % RDW 14.3 (11.6-14.8) % Plt Count 91 L (150-400) X10^3/uL Neut % (Auto) 80.7 H (50-75) % Lymph % (Auto) 12.3 L (25-40) % Ward % (Auto) 6.3 (3-14) % Eos % (Auto) 0.1 L (2-4) % Baso % (Auto) 0.6 (0-2) % Neut # (Auto) 4400 (8102-9802) /uL Lymph # (Auto) 700 L (5742-4947) /uL Ward # (Auto) 300 (0-900) /uL Eos # (Auto) 0 (0-450) /uL Baso # (Auto) 0 (0-100) /uL Sodium 135 L (137-145) mmol/L Potassium 3.6 (3.4-5.1) mmol/L Chloride 102 (98-107) mmol/L Carbon Dioxide 25 (22-32) mmol/L BUN 18 H (7-17) mg/dL Creatinine 0.59 (0.52-1.04) mg/dL Estimated GFR > 60 (>60) mL/min BUN/Creatinine Ratio 30.5 H (6-22) Glucose 113 H (70-100) mg/dL Lactate 1.2 (0.7-2.1) mmol/L Calcium 9.2 (8.4-10.2) mg/dL Total Bilirubin 1.1 (0.2-1.3) mg/dL AST 29 (14-36) IU/L ALT 39 H (<35) IU/L Alkaline Phosphatase 96 (38-126) U/L Total Protein 8.4 H (6.3-8.2) g/dL Albumin 4.4 (3.5-5.0) g/dL Globulin 4.0 (1.7-4.1) g/dL Albumin/Globulin Ratio 1.1 (1.0-2.8) Imaging Data US - DVT: My Impression: Agree with Radiology interpretation Radiologist's Impression: [address] [place] [address] Ultrasound Report Signed Patient: Graciela Farris MR#: [id number] : 1970 Acct:[id number] Age/Sex: 53 / F Date of Service: 08/31/23 Loc: ED Accession Number: [id number] Procedure: US periph venous low extrem lt Ordering Provider: Viv Meier P.A-C PROCEDURE: US PERIPH VENOUS LOW EXTREM LT INDICATIONS: EDEMA TECHNIQUE: Real-time imaging, as well as color and pulse Doppler interrogation, were performed of the lower extremity deep veins from the inguinal ligament to the popliteal fossa, with documentation of the visualized calf veins. COMPARISON: None. FINDINGS: The common femoral, femoral, popliteal, and the visualized calf veins are normally compressible, and free of intraluminal thrombus. Color and pulse Doppler demonstrate normal phasic intraluminal flow. There is normal augmentation response to distal compression maneuver. IMPRESSION: Negative left lower extremity duplex venous ultrasound for DVT. Dictated by: Harrison Jernigan M.D. on 08/31/2023 at 15:48 Approved by: Harrison Jernigan M.D. on 08/31/2023 at 15:49 [facility] Narrative Medical decision making narrative: This is a 53-year-old woman with a history of chronic venous stasis and lower extremity rash psoriasis versus eczema who presents with concern for worsening cellulitis of her left lower leg after being seen by her PCP on [facility] yesterday. Exam is concerning for progressing cellulitis, however patient has no systemic symptoms, labs are obtained including CBC, CMP, lactate and blood cultures are also obtained today. Discussed options with pharmacy and ultimately did administer IV ceftriaxone as well as IV doxycycline and start the patient on doxycycline p.o. in addition to her Augmentin prescription for broader coverage possible MRSA coverage. There was no area amenable to culture today of any open wound on the area of erythema. Given patient's exam findings of tenderness in the popliteal fossa in the calf as well as significant swelling a ultrasound was also obtained to evaluate for DVT which was negative. Patient did have a prolonged stay in the ER due to wait time and busy day, and she had no progression in fact possibly slight improvement of the area of erythema at the time of discharge as compared to when she presented. She is advised to have close follow up with her PCP for a recheck in 1-2 days' time, seek re-evaluation if she feels she is not improving or if she worsens at all despite antibiotics. Return precautions provided, follow-up plan discussed, all questions answered. <Renuka Sanford MD - Last Filed: 09/13/23 21:36> Lab Data Labs: Lab Results 08/31/23 Range/Units 12:15 WBC 5.5 (4.5-11.0) X10^3/uL RBC 3.74 L (4.0-5.2) X10^6/uL Hgb 13.1 (12.0-16.0) g/dL Hct 38.7 (36-46) % MCV 103.5 H (80-100) fL MCH 35.2 H (26-34) PG MCHC 34.0 (30-36) % RDW 14.3 (11.6-14.8) % Plt Count 91 L (150-400) X10^3/uL Neut % (Auto) 80.7 H (50-75) % Lymph % (Auto) 12.3 L (25-40) % Ward % (Auto) 6.3 (3-14) % Eos % (Auto) 0.1 L (2-4) % Baso % (Auto) 0.6 (0-2) % Neut # (Auto) 4400 (8505-1887) /uL Lymph # (Auto) 700 L (9687-5050) /uL Ward # (Auto) 300 (0-900) /uL Eos # (Auto) 0 (0-450) /uL Baso # (Auto) 0 (0-100) /uL Sodium 135 L (137-145) mmol/L Potassium 3.6 (3.4-5.1) mmol/L Chloride 102 (98-107) mmol/L Carbon Dioxide 25 (22-32) mmol/L BUN 18 H (7-17) mg/dL Creatinine 0.59 (0.52-1.04) mg/dL Estimated GFR > 60 (>60) mL/min BUN/Creatinine Ratio 30.5 H (6-22) Glucose 113 H (70-100) mg/dL Lactate 1.2 (0.7-2.1) mmol/L Calcium 9.2 (8.4-10.2) mg/dL Total Bilirubin 1.1 (0.2-1.3) mg/dL AST 29 (14-36) IU/L ALT 39 H (<35) IU/L Alkaline Phosphatase 96 (38-126) U/L Total Protein 8.4 H (6.3-8.2) g/dL Albumin 4.4 (3.5-5.0) g/dL Globulin 4.0 (1.7-4.1) g/dL Albumin/Globulin Ratio 1.1 (1.0-2.8) Discharge Plan Departure Patient Disposition: Home Clinical Impression: Cellulitis Qualifiers: Site of cellulitis: extremity Site of cellulitis of extremity: lower extremity Laterality: left Qualified Code(s): L03.116 - Cellulitis of left lower limb Activity Restrictions/Additional Instructions: *You have been diagnosed with [cellulitis] *What to do: *Please continue to take your regular medications as directed. [1] New medication prescriptions sent to your pharmacy: [Doxycycline] [ ] New medication written as a paper prescription [ ] No new medications given *Please follow up with your primary care provider in 2-3 days, call for an appointment. Let them know you were seen in the Emergency Department and that we ask that you be seen in follow up. We will electronically transmit a record of today's note if your PCP is in our system. You came in to the ER today due to concern for redness spreading from the site of cellulitis that you were diagnosed with yesterday. It is possible that the antibiotics that you started simply have not had enough time to start to work, however given the spread of this infection on exam we did do IV antibiotics today for you including doxycycline and ceftriaxone. I would like you to continue taking the oral antibiotics as prescribed although skip her dose tonight and started again in the morning because you had a similar antibiotic today through her IV. In addition please warp picker a prescription for doxycycline and start taking this in the morning you already had this medicine through her IV today. This will give you broader coverage for your skin infection. We did get some labs on you today which looked good and we obtained blood cultures, it will take about 48 hours or so before we get the blood culture results. Please monitor for new or worsening symptoms and make sure you get a skin check in the next couple of days at your primary care office, if you feel you are worsening or have new symptoms such as fevers or chills or increasing redness pain swelling despite the antibiotics please seek re-evaluation immediately. We did do an ultrasound today to evaluate for a blood clot in your leg as this can sometimes cause pain redness and swelling such as you have, and this was negative for clot. I hope you feel better soon. *If you do not have a primary care provider please contact the [facility] Resource line at [phone]. They will ask some questions about your medical history and help get you set up with a doctor in the community. *Return to Emergency Department if you should have any new, worsening or concerning symptoms, such as [fever greater than 101 F, shaking chills, worsening pain, persistent vomiting or other bothersome symptoms] Prescriptions: No Action cholecalciferol (vitamin D3) 1,250 mcg (50,000 unit) capsule 1,250 mcg PO QMONTH Qty: 12 0RF omeprazole 20 mg capsule,delayed release(DR/EC) 20 mg PO DAILY Qty: 30 1RF albuterol sulfate 90 mcg/actuation HFA aerosol inhaler 2 puff inhalation Q6H PRN (Reason: shortness of breath or wheezing) Qty: 8.5 0RF benzonatate 100 mg capsule 100 mg PO BID-TID PRN (Reason: cough) Qty: 20 0RF fluticasone propionate [Flonase Allergy Relief] 50 mcg/actuation spray,suspension 1 spray intranasal BID Qty: 16 0RF Rx Instructions: administer into each nostril acetaminophen 500 mg tablet 500 mg PO Q6H PRN amoxicillin-pot clavulanate 875-125 mg tablet 1 tab PO BID Qty: 20 0RF ondansetron HCl 4 mg tablet 4 mg PO TID PRN (Reason: nausea and vomiting) Qty: 14 0RF furosemide 20 mg tablet 20 mg PO QAM Qty: 30 0RF Rx Instructions: INCREASE: take 1 whole tablet triamcinolone acetonide 0.1 % cream 1 applic topical DAILY Qty: 60 2RF fluconazole 150 mg tablet 150 mg PO ONCE Qty: 1 0RF Rx Instructions: as a single dose omeprazole 40 mg capsule,delayed release(DR/EC) 40 mg PO BID Qty: 28 0RF Referrals: Debra Morin PA-C [Primary Care Provider] - Stand Alone Forms: Patient Portal/API ED Sign-out <Renuka Sanford MD - Last Filed: 09/13/23 21:36> Cosign ED Attending Cosignature Attestation: I was immediately available in the department for consultation throughout this patient's visit. Renuka Sanford MD
[2023-08-31 12:26] LABS: Add Manual Diff / Slide Review NO; Basophils Absolute Auto 0 /uL (0-100); Basophils Percent Auto 0.6 % (0-2); Eosinophils Absolute Auto 0 /uL (0-450); Eosinophils Percent Auto 0.1 % (2-4); Hematocrit 38.7 % (36-46); Hemoglobin 13.1 g/dL (12.0-16.0); Lymphocytes Absolute Auto 700 /uL (1100-4500); Lymphocytes Percent Auto 12.3 % (25-40); Mean Corpuscular Hemoglobin 35.2 PG (26-34); Mean Corpuscular Volume 103.5 fL (80-100); Monocytes Absolute Auto 300 /uL (0-900); Monocytes Percent Auto 6.3 % (3-14); Neutrophils Absolute Auto 4400 /uL (1500-7000); Neutrophils Percent Auto 80.7 % (50-75); Platelet Count 91 X10^3/uL (150-400); Red Blood Cell Count 3.74 X10^6/uL (4.0-5.2); Red Cell Distribution Width 14.3 % (11.6-14.8); White Blood Cell Count 5.5 X10^3/uL (4.5-11.0)
[2023-08-31 12:41] LABS: Lactate (Lactic Acid) 1.2 mmol/L (0.7-2.1)
[2023-08-31 12:42] LABS: Alanine Aminotransferase 39 IU/L (<35); Albumin 4.4 g/dL (3.5-5.0); Albumin Globulin Ratio 1.1 (1.0-2.8); Alkaline Phosphatase 96 U/L (38-126); Aspartate Aminotransferase 29 IU/L (14-36); BUN Creatinine Ratio 30.5 (6-22); Bilirubin Total 1.1 mg/dL (0.2-1.3); Blood Urea Nitrogen 18 mg/dL (7-17); Calcium 9.2 mg/dL (8.4-10.2); Carbon Dioxide 25 mmol/L (22-32); Chloride 102 mmol/L (98-107); Estimated Glomerular Filt Rate > 60 mL/min (>60); Glucose 113 mg/dL (70-100); Potassium 3.6 mmol/L (3.4-5.1); Sodium 135 mmol/L (137-145); Total Protein 8.4 g/dL (6.3-8.2)
[2023-08-31 12:43] LABS: HEMOLYSIS 68 (0-50)
[2023-08-31] MEDS: ONDANSETRON 4 MG/2 ML INJ IV (13:24)
[2023-08-31] MEDS: fentaNYL 100 MCG/2 ML INJ 50 MCG IV (13:24)
--- NOTE | 2023-08-31 13:36 | DI.US.S_ITS ---
PROCEDURE: US PERIPH VENOUS LOW EXTREM LT INDICATIONS: EDEMA TECHNIQUE: Real-time imaging, as well as color and pulse Doppler interrogation, were performed of the lower extremity deep veins from the inguinal ligament to the popliteal fossa, with documentation of the visualized calf veins. COMPARISON: None. FINDINGS: The common femoral, femoral, popliteal, and the visualized calf veins are normally compressible, and free of intraluminal thrombus. Color and pulse Doppler demonstrate normal phasic intraluminal flow. There is normal augmentation response to distal compression maneuver. IMPRESSION: Negative left lower extremity duplex venous ultrasound for DVT. Dictated by: Harrison Jernigan M.D. on 08/31/2023 at 15:48 Approved by: Harrison Jernigan M.D. on 08/31/2023 at 15:49
--- NOTE | 2023-08-31 13:45 | PC.NURSE ---
Pt desated to mid 80's. Encouraged to sit up right and take deep breaths. Pt is A&O and oxygen returns to 94% on RA. Placed on 2L via NC. Provider Hardeep made aware.
[2023-08-31 13:47] VITALS: BP 115/74; PULSE 74; RESP 16; O2SAT 97
[2023-08-31 14:30] VITALS: PULSE 75; RESP 16; O2SAT 98
[2023-08-31] MEDS: DOXYCYCLINE 100 MG in SODIUM CHLORIDE 0.9% 100 ML IV (14:57)
[2023-08-31 15:30] VITALS: PULSE 79; RESP 17; O2SAT 97
[2023-08-31] MEDS: cefTRIAXone 2,000 MG in SODIUM CHLORIDE 0.9% 100 ML 200 MG IV (16:13)
[2023-08-31 17:27] VITALS: BP 111/67; PULSE 76; RESP 16; TEMP 37; O2SAT 97
== END 2023-08-31 17:50 | disposition home or self-care (01) ==
PROVIDERS: Emergency Provider Student in an Organized Health Care Education/Training Program; PCP Physician Assistant Medical
DX: L03.116 Cellulitis of left lower limb (principal)
CPT/HCPCS: 36415; 80053; 83605; 85025; 87040; 93971; 96365; 96367; 96375; 99284; J0696; J2405; J3010

== ENCOUNTER → 2023-09-07 12:30 | Outpatient (CLI) | payer OTHER, MEDICAID, SELFPAY | PROVIDERS: PCP Physician Assistant Medical; Visit Provider Family Medicine | DX: R30.0 Dysuria (principal) | CPT/HCPCS: 81002; 87086 ==

== ENCOUNTER → 2023-09-21 14:39 | Outpatient (CLI) | payer OTHER, MEDICAID, SELFPAY ==
--- NOTE | 2023-09-21 14:41 | DI.MG.S_ITS ---
BILATERAL DIGITAL SCREENING MAMMOGRAM 3D/2D WITH CAD: 09/21/2023 CLINICAL: Routine screening. Comparison is made to exams dated: 07/30/2022 mammogram and 08/31/2022 mammogram - [facility]. There are scattered areas of fibroglandular density in both breasts (category b / 25%-50% glandular tissue). Current study was also evaluated with a Computer Aided Detection (CAD) system. No significant masses, calcifications, or other findings are seen in either breast. There has been no significant interval change. IMPRESSION: NEGATIVE There is no mammographic evidence of malignancy. A 1 year screening mammogram is recommended. Based on the Tyrer Cuzick model (a risk assessment model) the patient's lifetime risk is 7.0% and her 10 year risk is 1.7%. According to the ACR, ACS, and NCCN guidelines, an annual breast MRI exam along with mammogram is recommended if the patient's lifetime risk is 20% or greater. This exam was interpreted at Station ID: [id number]. NOTE: For mammograms, a report in lay terms will be sent to the patient. Approximately 15% of breast malignancies will not be visualized mammographically. In the management of a palpable breast mass, a negative mammogram must not discourage biopsy of a clinically suspicious lesion. Electronically Signed By: Carlos payton/angelo:09/21/2023 16:51:56 letter sent: Normal Exam ACR BI-RADS Category 1: Negative [id number]
--- NOTE | 2023-09-21 14:41 | DI.US.S_ITS ---
PROCEDURE: US ABDOMEN COMPLETE INDICATIONS: elevated LFTs, macrocytosis, low plts TECHNIQUE: Real-time scanning was performed of the abdominal and retroperitoneal organs, with image documentation. COMPARISON: None. FINDINGS: Liver: Increased liver echogenicity with posterior attenuation, most consistent with moderate to severe steatosis. This measures 16.2 centimeter. Gallbladder: Normal. Biliary ducts: Intrahepatic bile ducts are non-dilated. Extrahepatic bile duct caliber measures 5 mm. Normal is 6-7 mm or less in diameter, or 10 mm or less post-cholecystectomy. Pancreas: Visualized portions of the pancreas are sonographically normal. Spleen: Spleen is normal in size and homogeneous in echotexture. This measures 9.3 centimeter. Kidneys: Kidneys are normal in size and echotexture. Right kidney measures 10.6 cm long; left kidney measures 10.5 cm long. No hydronephrosis or nephrolithiasis. No solid masses. Aorta: Visualized aorta is normal in caliber at less than 3 cm. Iliacs: Proximal common iliac arteries are normal in caliber at less than 2.5 cm. IVC: Intrahepatic inferior vena cava is patent. Miscellaneous: No free abdominal fluid. IMPRESSION: Hepatic steatosis. In the absence of alcohol use or other confounding factors, elevated LFTs may indicate non-alcoholic steatohepatitis (WONG). Normal size of the liver and spleen. Dictated by: Sancho Walter M.D. on 09/21/2023 at 18:36 Approved by: Sancho Walter M.D. on 09/21/2023 at 18:37
== END ==
PROVIDERS: PCP Physician Assistant Medical; Referring Provider Physician Assistant Medical; Visit Provider Physician Assistant Medical
DX: Z12.31 Encounter for screening mammogram for malignant neoplasm of breast (principal); R92.323 Mammographic fibroglandular density, bilateral breasts; K76.0 Fatty (change of) liver, not elsewhere classified; D61.818 Other pancytopenia; R73.03 Prediabetes; R74.8 Abnormal levels of other serum enzymes
CPT/HCPCS: 76700; 77063; 77067

== ENCOUNTER → 2023-10-07 10:10 | Outpatient (CLI) | payer OTHER, MEDICAID, SELFPAY ==
[2023-10-07 19:49] LABS: HEMOLYSIS < 15 (0-50); Iron 96 ug/dL (37-170)
[2023-10-07 19:51] LABS: Cholesterol 157 mg/dL (140-199); Gamma Glutamyl Transpeptidase 61 U/L (12-43); HDL Cholesterol 42 mg/dL (40-60); LDL Cholesterol Calculated 94 mg/dL (<100); Triglycerides 104 mg/dL (35-150)
[2023-10-07 19:53] LABS: Hemoglobin A1C% w Est Avg Glu 5.8 % (4.0-6.0)
[2023-10-07 20:01] LABS: Percent Iron Saturation 34 % (15-50); Total Iron Binding Capacity 282 ug/dL (265-497); Transferrin 215 mg/dL (206-381)
[2023-10-07 20:21] LABS: TSH w/ Reflex to FT4 0.97 uIU/mL (0.47-4.68)
[2023-10-07 20:30] LABS: Ferritin 84 ng/mL (11-264)
[2023-10-13 16:36] LABS: ANA Screen, IFA Negative (.)
== END ==
PROVIDERS: PCP Physician Assistant Medical; Visit Provider Family Medicine
DX: R74.8 Abnormal levels of other serum enzymes (principal); R73.03 Prediabetes; D61.818 Other pancytopenia; E78.2 Mixed hyperlipidemia
CPT/HCPCS: 80061; 82728; 82977; 83036; 83540; 83550; 84443; 86038